=== PATIENT | female | born 1960 | race Caucasian/White ===

== ENCOUNTER 2016-12-18 23:43 | Emergency (ER) | payer SELFPAY ==
[~2016-12-18 23:43] MED LIST: CYCL-36; LORT5TAB PO; PENI500T PO; ULTR37.57
[2016-12-18 23:45] VITALS: BP 126/93; PULSE 92; RESP 16; TEMP 97.6; O2SAT 98
== END 2016-12-18 23:49 | disposition left against medical advice (07) ==
LOC: NED 23:43
DX: R06.02 Shortness of breath (principal); R50.9 Fever, unspecified
CPT/HCPCS: 99281